=== PATIENT | male | born 1950 | race Caucasian/White ===

== ENCOUNTER 2017-03-28 06:35 | Inpatient (IN) | payer MEDICARE, BC ==
[2017-03-28] MEDS ORDERED: ceFAZolin 2 GM in Sodium Chloride 0.9% 50 ML IV ONE (07:00)
[2017-03-28] MEDS ORDERED: Scopolamine 1.5 MG Transdermal Patch TOP SCH (07:00)
[2017-03-28] MEDS ORDERED: Povidone-Iodine 10% Soln 118.25 ML Bottle ONE (07:00)
[2017-03-28] MEDS ORDERED: Thrombin (Bovine) 5,000 Unit Kit ONE (07:00)
[2017-03-28] MEDS ORDERED: Lactated Ringers 1,000 ML IV SCH (07:00)
[2017-03-28] MEDS ORDERED: Gabapentin 300 MG Cap PO ONE (07:00)
[2017-03-28] MEDS ORDERED: Glycopyrrolate 0.2 MG/ML 5 ML MDV ONE (07:51)
[2017-03-28] MEDS ORDERED: Midazolam 1 MG/ML 2 ML SDV ONE (07:51)
[2017-03-28] MEDS ORDERED: Ondansetron 4 MG/2 ML SDV ONE (07:51)
[2017-03-28] MEDS ORDERED: Succinylcholine 200 MG/10 ML MDV ONE (07:51)
[2017-03-28] MEDS ORDERED: Dexamethasone 4 MG/ML SDV ONE (07:51)
[2017-03-28] MEDS ORDERED: Propofol 200 MG/20 ML SDV ONE ×2 (07:51→10:10)
[2017-03-28] MEDS ORDERED: Neostigmine Methylsulfate 1 MG/ML 5 ML Syringe ONE (07:51)
[2017-03-28] MEDS ORDERED: Rocuronium 50 MG/5 ML Vial ONE (07:51)
[2017-03-28] MEDS ORDERED: Ketamine 500 MG/5 ML MDV IV ONE (08:00)
[2017-03-28] MEDS ORDERED: Ropivacaine 49.25 ML, Ketorolac 30 MG, EPINEPHrine 0.5 MG, cloNIDine 80 MCG, Sodium Chl... INJECT ONE ×5 (08:00)
[2017-03-28] MEDS: Tranexamic Acid 770 MG in Sodium Chloride 0.9% 50 ML IV SCH ×2 (08:06→11:35)
[2017-03-28] MEDS ORDERED: Atropine 0.4 MG/ML SDV ONE (09:40)
[2017-03-28] MEDS ORDERED: Lactated Ringers 1,000 ML ONE ×2 (09:59→10:22)
[2017-03-28] MEDS ORDERED: ePHEDrine 50 MG/ML SDV ONE (10:26)
[2017-03-28] MEDS ORDERED: fentaNYL 100 MCG/2 ML SDV ONE (10:51)
[2017-03-28] MEDS ORDERED: Magnesium Hydroxide 400 MG/5 ML Susp 30 ML Cup PO PRN (11:12)
[2017-03-28] MEDS ORDERED: Naloxone 0.4 MG/ML SDV IVPUSH PRN (11:12)
[2017-03-28] MEDS ORDERED: Aluminum Hydroxide/Magnesium Hydroxide/Simethicone Susp 30 ML Cup PO PRN (11:12)
[2017-03-28] MEDS ORDERED: Zolpidem 5 MG Tab PO PRN (11:12)
[2017-03-28] MEDS ORDERED: Sennosides 8.6 MG Tab PO PRN (11:12)
[2017-03-28] MEDS ORDERED: Sodium Chloride 0.9% 10 ML Syringe FLUSH PRN (11:12)
[2017-03-28] MEDS ORDERED: Ondansetron 4 MG/2 ML SDV IVPUSH PRN (11:12)
[2017-03-28] MEDS ORDERED: HYDROmorphone 1 MG/ML Syringe IVPUSH PRN (11:12)
[2017-03-28] MEDS: VERIFY SCOPOLAMINE PATCH TOP SCH (12:16)
[2017-03-28] MEDS: Acetaminophen/oxyCODONE 325-5 MG Tab PO PRN ×3 (13:27→23:04)
[2017-03-28] MEDS ORDERED: ceFAZolin 1 GM in Premix Bag 1 BAG IV SCH (16:00)
[2017-03-28] MEDS: ceFAZolin 1 GM in Premix Bag 1 BAG IV SCH ×2 (16:14→23:04)
[2017-03-28] MEDS: Diazepam 5 MG Tab PO PRN (19:29)
[2017-03-28] MEDS: Amitriptyline 10 MG Tab PO SCH (20:50)
[2017-03-28] MEDS ORDERED: Amitriptyline 10 MG Tab PO SCH (21:00)
[2017-03-29] MEDS: Acetaminophen/oxyCODONE 325-5 MG Tab PO PRN ×4 (06:03→20:18)
--- NOTE | 2017-03-29 08:25 | OR ---
DATE OF PROCEDURE: 03/28/2017 PREOPERATIVE DIAGNOSES: 1. Lumbar stenosis; L3-4, L4-5, L5-S1. 2. Right footdrop. 3. Right lower extremity radiculopathy. 4. Foraminal stenosis, right L3-4 and right L5-S1. POSTOPERATIVE DIAGNOSES: 1. Lumbar stenosis; L3-4, L4-5, L5-S1. 2. Right footdrop. 3. Right lower extremity radiculopathy. 4. Foraminal stenosis, right L3-4 and right L5-S1. PROCEDURE: 1. Transforaminal lumbar interbody fusion with posterior lateral fusion, L5-S1. 2. Insertion of interbody device at L5-S1. 3. Segmental instrumentation, L5-S1. 4. Laminectomy done, which was required, in addition to decompression for fusion at L5-S1. 5. Use of intraoperative fluoroscopy. 6. Laminectomy at L3-L4 and L4-L5. 7. Use of autograft from laminectomy and posterolateral gutter interspace as well as use of allograft. SHORTS SIFTER: ALANA Salas. ANESTHESIA: General endotracheal intubation. FLUID: Lactated Ringer solution. ESTIMATED BLOOD LOSS: 100 mL. COMPLICATIONS: None. SPECIMEN: None. DISCHARGE DISPOSITION: Stable to PACU. INSTRUMENTATION: Globus CREO AMP 6.5 x 50 mm screws x2 at L5 and 6.5 x 40 mm cryo screws x2 at S1 with a Rise 10 x 26, 10 degree, 8-15 mm implant at L5-S1. INDICATIONS: The patient was seen preoperatively in the clinic. He recently had a new onset intermittent footdrop with back pain and lower extremity weakness, right lower extremity radiculopathy. Preoperative imaging confirmed the above-mentioned diagnosis. Risks and benefits of the procedure were explained to the patient. Informed consent was obtained. DETAILS OF PROCEDURE: The patient was seen preoperatively by myself and the anesthesia staff in the preoperative holding area where the operative site was marked. He was brought to the operative suite by the anesthesia staff where general anesthesia was administered. Neuromonitoring leads were placed and normal at baseline. He also had a sterile Enamorado catheter placed. The fluoroscopy unit was draped in a sterile manner, and the patient was then flipped into a prone position on the Kurtis table. All extremities found to be well padded. The bed was flexed. The low back was clipped, prepped and draped in sterile manner. Time-out was called identifying the correct patient, correct procedure, the correct site, and antibiotics had been given within appropriate period of time. Lateral fluoroscopy was then used to identify the pedicles of S1 up to L3. A midline incision was made from L3 to S1 and carried down to the deep fascia. Bleeding during the case was controlled with Bovie electrocautery, a bipolar electrocautery unit, as well as Aquamantys 5.0 unit. Initial retraction was accomplished with cerebellars. The deep fascia was then incised over the L3 to S1 spinous processes over their respective lamina, transverse processes at L5-S1, and the sacral ala at S1. This was done using a Pedersen and Bovie electrocautery. I then inserted the Versa-Trac at L5-S1 with 75 mm blades and then cleaned up the soft tissue over L5 and S1, as well as the respective facets of the transverse processes on the left at L5 and S1. Screw insertion was done by the following technique: The lateral facet was decorticated. The entry point was then made in the midpoint of the transverse process. A PediGuard unit was then inserted, followed by confirmed placement with the pedicle probe, followed by under tapping by 1 mm, followed by screw placement. This was done on both sides. Screws were then tested and all found to be above 17. I did replace the S1 on the right because it tested at 6. I did not feel any abnormality but then decided to place this a little bit more laterally. This, then placed above 17. This being accomplished, I did a laminectomy at L5 and then a total facetectomy at L5-S1 on the right. I then carefully identified the disk space just cranial to the S1 pedicle. We unroofed the L5 root on the right, but did not take soft tissue off to visualize it. We then incised the disk space with a 15 blade and then sequentially used ekta from 7 to 11. I then did disk space preparation using straight curettes, upgoing and downgoing curettes, as well as downgoing straight and upgoing pituitaries. I then used a bone funnel and tamped in bone graft anteriorly with a bone funnel and tamp. I then inserted our implant and then, under direct visualization, expanded this till it locked out and then took final films. I then took a film of the interbody anteriorly. We then cleaned off our screws. I then proceeded with our laminectomies at L3-L4 and L4-L5. I did a wide laminectomy at L4-L5 and more of a moderate laminectomy at L3-4. I removed extensive ligamentum flavum at both levels. No durotomy was encountered during the procedure. I then placed Floseal in the epidural space and then tamped this with Ray-Tecs while we concentrated on finishing our fusion. We then cleaned our screws. We placed the tulips 40 mm rods, locking caps and then torqued into specification. I then took final films, which showed everything to be in good position. We then irrigated with 3 L of Betadine infused irrigation, and then, I decorticated the transverse processes, ala, and lateral facet and pars at L5-S1 and then placed a mixture of Signify and our graft from our laminectomies in the posterior lateral gutter on the left. After this had been accomplished, we then applied some Floseal, then tamped that dry with a Ray-Saúl, followed by Gel-Foam powder, followed by closure with 2-0 Vicryl in an interlocking manner, 2-0 Vicryl in a running manner, followed by a liter of Betadine-infused irrigation, followed by subcutaneous closure with two STRATAFIX, then 3-0 STRATAFIX, and then Steri- Strips. The neuromonitoring leads were normal at the end of the case. There were some minor fluctuations in SSEPs on the right while we were working there, but they did not drop out at all. The patient was then flipped back into the hospital bed. Neuromonitoring leads were removed, and he was taken to the PACU in stable condition. Glen Salgado DO /[id number]
[2017-03-29] MEDS ORDERED: Non-Formulary Medication 1 Each (Citalopram Hydrobromide [Celexa] 20 MG) PO SCH (09:00)
[2017-03-29] MEDS ORDERED: Simvastatin 20 MG Tab PO SCH ×2 (09:00)
[2017-03-29] MEDS ORDERED: ASCORBIC ACID PO SCH (09:00)
[2017-03-29] MEDS ORDERED: Ascorbic Acid 500 MG Tab PO SCH ×2 (09:00)
[2017-03-29] MEDS ORDERED: COD LIVER OIL PO SCH (09:00)
[2017-03-29] MEDS ORDERED: ASCORBIC ACID 100 MG PO SCH (09:00)
[2017-03-29] MEDS: ceFAZolin 1 GM in Premix Bag 1 BAG IV SCH (09:42)
[2017-03-29] MEDS: Dexamethasone 4 MG/ML 5 ML MDV IVPUSH SCH ×3 (09:45→20:11)
[2017-03-29] MEDS: Ascorbic Acid 500 MG Tab PO SCH (09:48)
[2017-03-29] MEDS: Gabapentin 300 MG Cap PO SCH ×3 (09:49→20:14)
[2017-03-29] MEDS: Citalopram 20 MG Tab PO SCH (09:49)
[2017-03-29] MEDS: VERIFY SCOPOLAMINE PATCH TOP SCH (09:50)
[2017-03-29] MEDS: COD LIVER OIL PO SCH (09:51)
[2017-03-29] MEDS: ASCORBIC ACID PO SCH (09:51)
[2017-03-29] MEDS: Simvastatin 20 MG Tab PO SCH (09:55)
[2017-03-29] MEDS: Diazepam 5 MG Tab PO PRN ×2 (10:45→17:49)
[2017-03-29] MEDS: Amitriptyline 10 MG Tab PO SCH (20:14)
[2017-03-29] MEDS: Tamsulosin 0.4 MG Cap.ER PO SCH (21:44)
[2017-03-30] MEDS: Diazepam 5 MG Tab PO PRN (02:23)
[2017-03-30] MEDS: Dexamethasone 4 MG/ML 5 ML MDV IVPUSH SCH ×4 (02:24→21:47)
[2017-03-30] MEDS ORDERED: ceFAZolin 2 GM in Premix Bag 1 BAG IV SCH (08:00)
[2017-03-30] MEDS: Citalopram 20 MG Tab PO SCH (08:07)
[2017-03-30] MEDS: Ascorbic Acid 500 MG Tab PO SCH (08:07)
[2017-03-30] MEDS: COD LIVER OIL PO SCH (08:07)
[2017-03-30] MEDS: ASCORBIC ACID PO SCH (08:07)
[2017-03-30] MEDS: Gabapentin 300 MG Cap PO SCH ×3 (08:07→21:47)
[2017-03-30] MEDS: VERIFY SCOPOLAMINE PATCH TOP SCH (08:08)
[2017-03-30] MEDS: Simvastatin 20 MG Tab PO SCH (08:09)
--- NOTE | 2017-03-30 08:48 | US ---
VL Duplex Lwr Ext Veins Comp HISTORY: Pain FINDINGS: The deep veins of the lower extremities bilaterally demonstrate normal augmentation and com pressibility. No evidence for deep venous thrombosis. IMPRESSION: Normal bilateral lower extremity venous Doppler ultrasound.
[2017-03-30] MEDS: ceFAZolin 2 GM in Sodium Chloride 0.9% 50 ML IV SCH ×2 (09:21→16:51)
[2017-03-30] MEDS: Tamsulosin 0.4 MG Cap.ER PO SCH ×2 (09:22→16:58)
[2017-03-30] MEDS: Acetaminophen/oxyCODONE 325-5 MG Tab PO PRN ×3 (10:01→21:46)
--- NOTE | 2017-03-30 18:12 | PCM.PN ---
- General Info Date of Service: 03/30/17 Functional Status: Reports: Pain Controlled, Tolerating Diet, Ambulating, Urinating - Review of Systems General: Reports: No Symptoms - Patient Data Vitals - Most Recent: Last Vital Signs Temp 36.1 C 03/30/17 15:28 Pulse 64 03/30/17 15:28 Resp 16 03/30/17 15:28 BP 126/61 03/30/17 15:28 Pulse Ox 96 03/30/17 15:28 Weight - Most Recent: 163 lb 15.995 oz I&O - Last 24 Hours: Intake & Output 03/30/17 03/30/17 03/30/17 06:59 14:59 22:59 Intake Total 800 360 320 Output Total 1200 360 375 Balance -400 0 -55 Lab Results Last 24 Hours: Laboratory Results - last 24 hr 03/30/17 03/30/17 03/30/17 Range/Units 04:30 04:30 09:37 WBC 18.2 H (4.5-11.0) K/uL RBC 4.23 L (4.30-5.90) M/uL Hgb 12.5 (12.0-15.0) g/dL Hct 37.7 L (40.0-54.0) % MCV 89 (80-98) fL MCH 30 (27-31) pg MCHC 33 (32-36) % Plt Count 173 (150-400) K/uL Neut % (Auto) 91 H (36-66) % Lymph % (Auto) 4 L (24-44) % [place] % (Auto) 6 (2-6) % Eos % (Auto) 0 L (2-4) % Baso % (Auto) 0 (0-1) % Sodium 137 L (140-148) mmol/L Potassium 4.4 (3.6-5.2) mmol/L Chloride 102 (100-108) mmol/L Carbon Dioxide 29 (21-32) mmol/L Anion Gap 10.4 (5.0-14.0) mmol/L BUN 18 (7-18) mg/dL Creatinine 1.1 (0.8-1.3) mg/dL Est Cr Clr Drug Dosing 63.28 mL/min Estimated GFR (MDRD) > 60 (>60) Glucose 178 H (74-106) mg/dL Calcium 8.8 (8.5-10.1) mg/dL Urine Color Yellow Urine Appearance Turbid Urine pH 6.5 (4.5-8.0) Ur Specific [place] 1.015 (1.008-1.030) Urine Protein Negative (NEGATIVE) mg/dL Urine Glucose (UA) Normal (NEGATIVE) mg/dL Urine Ketones Negative (NEGATIVE) mg/dL Urine Occult Blood Large (NEGATIVE) Urine Nitrite Negative (NEGAITVE) Urine Bilirubin Negative (NEGATIVE) Urine Urobilinogen Normal (NORMAL) mg/dL Ur Leukocyte Esterase Large (NEGATIVE) Urine RBC Packed H (0-5) Urine WBC Packed H (0-5) Ur Epithelial Cells Few Amorphous Sediment Not seen Urine Bacteria Few Urine Mucus Rare Med Orders - Current: Current Medications Al Hydroxide/Mg Hydroxide (Mag-Al Plus) 30 ml PO Q4H PRN PRN Reason: Indigestion Amitriptyline HCl (Elavil) 10 mg PO BEDTIME [facility] Last Admin: 03/29/17 20:14 Dose: 10 mg Ascorbic Acid (Vitamin C) 500 mg PO DAILY [facility] Last Admin: 03/30/17 08:07 Dose: 500 mg Citalopram Hydrobromide (Celexa) 20 mg PO DAILY [facility] Last Admin: 03/30/17 08:07 Dose: 20 mg Dexamethasone (Dexamethasone) 10 mg IVPUSH Q6H [facility] Last Admin: 03/30/17 15:39 Dose: 10 mg Diazepam (Valium.) 5 mg PO Q6H PRN PRN Reason: Spasms Last Admin: 03/30/17 02:23 Dose: 5 mg Gabapentin (Neurontin) 300 mg PO TID [facility] Last Admin: 03/30/17 14:28 Dose: 300 mg Hydromorphone HCl (Dilaudid) 1 mg IVPUSH Q2H PRN PRN Reason: Pain Last Admin: 03/28/17 12:42 Dose: 1 mg Cefazolin Sodium 2 gm/ Sodium (Chloride) 50 mls @ 100 mls/hr IV Q8H [facility] Stop: 03/31/17 01:29 Last Admin: 03/30/17 16:51 Dose: 100 mls/hr Magnesium Hydroxide (Milk Of Magnesia) 30 ml PO BID PRN PRN Reason: Constipation Naloxone HCl (Narcan) 0.2 mg IVPUSH ONETIME PRN PRN Reason: Oversedation Verify Scopolamine (Patch) 0 each TOP DAILY [facility] Last Admin: 03/30/17 08:08 Dose: Not Given (Ascorbic Acid/Cod Liver Oil [Cod Liver Oil] 1 Tab)Pom 1 tab PO DAILY [facility] Last Admin: 03/30/17 08:07 Dose: Not Given Ondansetron HCl (Zofran) 8 mg IVPUSH Q4H PRN PRN Reason: Nausea/Vomiting Oxycodone/Acetaminophen (Percocet 325-5 Mg) 2 tab PO Q4H PRN PRN Reason: Pain Last Admin: 03/30/17 15:46 Dose: 2 tab Scopolamine (Transderm-Scop) 1.5 mg TOP Q72H [facility] Stop: 03/31/17 05:00 Last Admin: 03/28/17 06:56 Dose: 1.5 mg Senna (Senna) 8.6 mg PO BID PRN PRN Reason: Constipation Last Admin: 03/29/17 20:18 Dose: 8.6 mg Simvastatin (Zocor) 20 mg PO DAILY [facility] Last Admin: 03/30/17 08:09 Dose: 20 mg Tamsulosin HCl (Flomax) 0.4 mg PO BIDPC [facility] Last Admin: 03/30/17 16:58 Dose: 0.4 mg Zolpidem Tartrate (Ambien) 5 mg PO BEDTIME PRN PRN Reason: Sleep Discontinued Medications Amitriptyline HCl (Elavil) 10 mg PO BEDTIME [facility] Ascorbic Acid (Vitamin C) 250 mg PO DAILY [facility] Ascorbic Acid (Vitamin C) 250 mg PO DAILY [facility] Atropine Sulfate (Atropine) Confirm Administered Dose 0.4 mg .ROUTE .STK-MED ONE Stop: 03/28/17 09:41 Ropivacaine 49.25 ml/Ketorolac Tromethamine 30 mg/Epinephrine HCl 0.5 mg/ Clonidine HCl 80 mcg/ Sodium Chloride 48.45 ml 0 ml INJECT ONETIME ONE Stop: 03/28/17 08:01 Last Admin: 03/28/17 09:07 Dose: 100 ml Dexamethasone (Dexamethasone) Confirm Administered Dose 4 mg .ROUTE .STK-MED ONE Stop: 03/28/17 07:52 Ephedrine Sulfate (Ephedrine Sulfate) Confirm Administered Dose 50 mg .ROUTE .STK-MED ONE Stop: 03/28/17 10:27 Fentanyl (Sublimaze) Confirm Administered Dose 100 mcg .ROUTE .STK-MED ONE Stop: 03/28/17 10:52 Fentanyl Citrate (Fentanyl) Confirm Administered Dose 500 mcg .ROUTE .STK-MED ONE Stop: 03/28/17 07:52 Gabapentin (Neurontin) 300 mg PO ONETIME ONE Stop: 03/28/17 07:01 Last Admin: 03/28/17 06:56 Dose: 300 mg Glycopyrrolate (Robinul) Confirm Administered Dose 1 mg .ROUTE .STK-MED ONE Stop: 03/28/17 07:52 Cefazolin Sodium 2 gm/ Sodium (Chloride) 50 mls @ 100 mls/hr IV ONETIME ONE Stop: 03/28/17 07:29 Last Admin: 03/28/17 08:06 Dose: 100 mls/hr Lactated Ringer's (Ringers, Lactated) 1,000 mls @ 0 mls/hr IV ASDIRECTED [facility] PRN Reason: KVO Last Admin: 03/28/17 07:46 Dose: 100 mls/hr Tranexamic Acid 770 mg/ Sodium (Chloride) 57.7 mls @ 230.8 mls/hr IV Q3H [facility] Stop: 03/28/17 11:14 Last Admin: 03/28/17 11:35 Dose: 230.8 mls/hr Ketamine HCl 100 mg/ Sodium (Chloride) 100 mls @ 20.5 mls/hr IV ASDIRECTED [facility] Stop: 03/28/17 10:00 Lactated Ringer's (Ringers, Lactated) Confirm Administered Dose 1,000 mls @ as directed .ROUTE .STK-MED ONE Stop: 03/28/17 10:00 Lactated Ringer's (Ringers, Lactated) Confirm Administered Dose 1,000 mls @ as directed .ROUTE .STK-MED ONE Stop: 03/28/17 10:23 Cefazolin Sodium/Dextrose 1 gm (/ Premix) 50 mls @ 100 mls/hr IV Q8H [facility] Last Admin: 03/29/17 09:42 Dose: 100 mls/hr Ketamine HCl (Ketalar) 34 mg IV ONETIME ONE Stop: 03/28/17 08:01 Last Admin: 03/28/17 12:15 Dose: Not Given Midazolam HCl (Versed 1 Mg/Ml) Confirm Administered Dose 2 mg .ROUTE .STK-MED ONE Stop: 03/28/17 07:52 Neostigmine Methylsulfate (Neostigmine) Confirm Administered Dose 5 mg .ROUTE .STK-MED ONE Stop: 03/28/17 07:52 Non-Formulary Medication (Ascorbic Acid [Vitamin C]) 100 mg PO DAILY [facility] Non-Formulary Medication (Ascorbic Acid/Cod Liver Oil [Cod Liver Oil]) 1 tab PO DAILY [facility] Non-Formulary Medication (Citalopram Hydrobromide [Celexa]) 20 mg PO DAILY [facility] Ondansetron HCl (Zofran) Confirm Administered Dose 4 mg .ROUTE .STK-MED ONE Stop: 03/28/17 07:52 Povidone Iodine (Betadine 10% Soln) Confirm Administered Dose 1 ml .ROUTE .STK- MED ONE Stop: 03/28/17 07:01 Last Admin: 03/28/17 09:21 Dose: 40 ml Propofol (Diprivan 20 Ml) Confirm Administered Dose 200 mg .ROUTE .STK-MED ONE Stop: 03/28/17 07:52 Propofol (Diprivan 20 Ml) Confirm Administered Dose 200 mg .ROUTE .STK-MED ONE Stop: 03/28/17 10:11 Rocuronium [place] (Zemuron) Confirm Administered Dose 50 mg .ROUTE .STK-MED ONE Stop: 03/28/17 07:52 Simvastatin (Zocor) 20 mg PO DAILY [facility] Simvastatin (Zocor) 20 mg PO DAILY [facility] Sodium Chloride (Saline Flush) 10 ml FLUSH ASDIRECTED PRN PRN Reason: Keep Vein Open Succinylcholine Chloride (Quelicin) Confirm Administered Dose 200 mg .ROUTE .STK -MED ONE Stop: 03/28/17 07:52 Thrombin (Thrombin-Jmi) Confirm Administered Dose 15,000 unit .ROUTE .STK-MED ONE Stop: 03/28/17 07:01 Last Admin: 03/28/17 09:21 Dose: 10,000 unit - Exam General: Alert, Oriented Extremities: Normal Inspection, Normal Range of Motion, Non-Tender, No Pedal Edema, Normal Capillary Refill Peripheral Pulses: 2+: Dorsalis Pedis (L), Dorsalis Pedis (R) Skin: Warm, Intact Wound/Incisions: Healing Well, Dressing Dry and Intact Neurological: No New Focal Deficit, Normal Gait, Strength Equal Bilateral, Reflexes Equal Bilateral Psy/Mental Status: Alert, Normal Affect - Problem List Review Problem List Initiated/Reviewed/Updated: Yes - My Orders Last 24 Hours: My Active Orders 03/30/17 09:00 ceFAZolin [Ancef] 2 gm Sodium Chloride 0.9% [Normal Saline] 50 ml IV Q8H 03/31/17 05:15 BASIC METABOLIC PANEL,BMP [CHEM] DAILY CBC WITH AUTO DIFF [HEME] DAILY 04/01/17 05:15 BASIC METABOLIC PANEL,BMP [CHEM] DAILY CBC WITH AUTO DIFF [HEME] DAILY - Plan Plan:: Jani is pod 3 of a lumbar fusion. He is doing well. He continues to have some difficulties and pain in his right leg. He notes much improvement. He has some urinary hesitancy throughout the day that we have been monitoring. I did start him on flomax. I also ordered for him to have some extra ancef due to his wbc going to 18. We will continue to monitoring him till am. I want to watch his urine output closely.
[2017-03-30] MEDS: Amitriptyline 10 MG Tab PO SCH (21:47)
[2017-03-31] MEDS: ceFAZolin 2 GM in Sodium Chloride 0.9% 50 ML IV SCH (02:08)
[2017-03-31] MEDS: Dexamethasone 4 MG/ML 5 ML MDV IVPUSH SCH ×2 (02:08→08:54)
[2017-03-31] MEDS: Tamsulosin 0.4 MG Cap.ER PO SCH (07:49)
[2017-03-31] MEDS: Citalopram 20 MG Tab PO SCH (08:52)
[2017-03-31] MEDS: Simvastatin 20 MG Tab PO SCH (08:53)
[2017-03-31] MEDS: Ascorbic Acid 500 MG Tab PO SCH (08:53)
[2017-03-31] MEDS: Gabapentin 300 MG Cap PO SCH (08:53)
[2017-03-31] MEDS: Acetaminophen/oxyCODONE 325-5 MG Tab PO PRN (08:55)
[2017-03-31] MEDS: COD LIVER OIL PO SCH (08:58)
[2017-03-31] MEDS: VERIFY SCOPOLAMINE PATCH TOP SCH (08:58)
[2017-03-31] MEDS: ASCORBIC ACID PO SCH (08:58)
--- NOTE | 2017-03-31 09:34 | PCM.DCSUM1 ---
Discharge Summary - Hospital Course Free Text/Narrative:: Patient is status pod 3 of a lumbar fusion. He is doing well. His urine output has improved. He is ambulating without difficulties. His pain is controlled with oral pain medication. - Discharge Data Discharge Date: 03/31/17 Discharge Disposition: Home, Self-Care 01 Condition: Good - Patient Summary/Data Consults: Consultations 03/28/17 11:12 OT Evaluation and Treatment [CONS] Routine Please Evaluate and Treat. OT Reason for Consult: Strengthening This query below is only for informational purposes and is not editable. PT Evaluation and Treatment [CONS] Routine Please Evaluate and Treat. PT Reason for Consult: Strengthening This query below is only for informational purposes and is not editable. - Patient Instructions Diet: Usual Diet as Tolerated Activity: Apply Ice, As Tolerated Driving: Do Not Drive Showering/Bathing: May Shower Wound/Incision Care: Keep Operative Site/Wound Site Clean and Dry, Change Dressing Daily Notify Provider of: Fever, Increased Pain, Swelling and Redness, Drainage, Nausea and/or Vomiting - Discharge Plan Prescriptions/Med Rec: Acetaminophen/oxyCODONE [Percocet 325-5 MG] 1 tab PO Q6HR #90 tablet Diazepam [Valium] 5 mg PO Q6H PRN #20 tablet PRN Reason: Spasms Sennosides [Senna] 8.6 mg PO DAILY #60 tablet Tamsulosin [Flomax] 0.4 mg PO DAILY #60 cap.er Home Medications: Home Meds Amitriptyline [Elavil] 10 mg PO BEDTIME 03/20/17 [History] Ascorbic Acid [Vitamin C] 100 mg PO DAILY 03/20/17 [History] Ascorbic Acid/Cod Liver Oil [Cod Liver Oil] 1 tab PO DAILY 03/20/17 [History] Citalopram Hydrobromide [Celexa] 20 mg PO DAILY 03/20/17 [History] EPINEPHrine [Auvi-Q] 1 pen SQ ASDIRECTED 03/20/17 [History] Gabapentin [Neurontin] 300 mg PO TID 03/20/17 [History] Simvastatin [Zocor] 20 mg PO DAILY 03/20/17 [History] traMADol HCl [Tramadol HCl] 50 mg PO ASDIRECTED PRN 03/28/17 [History] Acetaminophen/oxyCODONE [Percocet 325-5 MG] 1 tab PO Q6HR #90 tablet 03/31/17 [ Rx] Diazepam [Valium] 5 mg PO Q6H PRN #20 tablet 03/31/17 [Rx] Sennosides [Senna] 8.6 mg PO DAILY #60 tablet 03/31/17 [Rx] Tamsulosin [Flomax] 0.4 mg PO DAILY #60 cap.er 03/31/17 [Rx] Patient Handouts: Tamsulosin capsules - Discharge Summary/Plan Comment DC Time >30 min.: Yes Discharge Summary/Plan Comment: At this time patient is doing well. He will be dc'd today to home. He is to follow up with ortho in 1 month. I will send him home with flomax, senna, percocet, and valium. He is to call sooner if any questions. - Patient Data Vitals - Most Recent: Last Vital Signs Temp 35.7 C 03/31/17 07:44 Pulse 58 L 03/31/17 07:44 Resp 16 03/31/17 07:44 BP 129/59 L 03/31/17 07:44 Pulse Ox 97 03/31/17 07:44 Weight - Most Recent: 163 lb 15.995 oz I&O - Last 24 hours: Intake & Output 03/30/17 03/31/17 03/31/17 22:59 06:59 14:59 Intake Total 320 50 Output Total 375 525 150 Balance -23 -660 -150 Lab Results - Last 24 hrs: Laboratory Results - last 24 hr 03/30/17 03/31/17 03/31/17 Range/Units 09:37 04:55 04:55 WBC 18.2 H (4.5-11.0) K/uL RBC 3.88 L (4.30-5.90) M/uL Hgb 11.7 L (12.0-15.0) g/dL Hct 35.0 L (40.0-54.0) % MCV 90 (80-98) fL MCH 30 (27-31) pg MCHC 33 (32-36) % Plt Count 173 (150-400) K/uL Neut % (Auto) 90 H (36-66) % Lymph % (Auto) 4 L (24-44) % [place] % (Auto) 5 (2-6) % Eos % (Auto) 0 L (2-4) % Baso % (Auto) 0 (0-1) % Sodium 137 L (140-148) mmol/L Potassium 4.4 (3.6-5.2) mmol/L Chloride 102 (100-108) mmol/L Carbon Dioxide 30 (21-32) mmol/L Anion Gap 9.4 (5.0-14.0) mmol/L BUN 20 H (7-18) mg/dL Creatinine 1.1 (0.8-1.3) mg/dL Est Cr Clr Drug Dosing 63.28 mL/min Estimated GFR (MDRD) > 60 (>60) Glucose 186 H (74-106) mg/dL Calcium 8.5 (8.5-10.1) mg/dL Urine Color Yellow Urine Appearance Turbid Urine pH 6.5 (4.5-8.0) Ur Specific [place] 1.015 (1.008-1.030) Urine Protein Negative (NEGATIVE) mg/dL Urine Glucose (UA) Normal (NEGATIVE) mg/dL Urine Ketones Negative (NEGATIVE) mg/dL Urine Occult Blood Large (NEGATIVE) Urine Nitrite Negative (NEGAITVE) Urine Bilirubin Negative (NEGATIVE) Urine Urobilinogen Normal (NORMAL) mg/dL Ur Leukocyte Esterase Large (NEGATIVE) Urine RBC Packed H (0-5) Urine WBC Packed H (0-5) Ur Epithelial Cells Few Amorphous Sediment Not seen Urine Bacteria Few Urine Mucus Rare Med Orders - Current: Current Medications Al Hydroxide/Mg Hydroxide (Mag-Al Plus) 30 ml PO Q4H PRN PRN Reason: Indigestion Amitriptyline HCl (Elavil) 10 mg PO BEDTIME [facility] Last Admin: 03/30/17 21:47 Dose: 10 mg Ascorbic Acid (Vitamin C) 500 mg PO DAILY [facility] Last Admin: 03/31/17 08:53 Dose: 500 mg Citalopram Hydrobromide (Celexa) 20 mg PO DAILY [facility] Last Admin: 03/31/17 08:52 Dose: 20 mg Dexamethasone (Dexamethasone) 10 mg IVPUSH Q6H [facility] Last Admin: 03/31/17 08:54 Dose: 10 mg Diazepam (Valium.) 5 mg PO Q6H PRN PRN Reason: Spasms Last Admin: 03/30/17 02:23 Dose: 5 mg Gabapentin (Neurontin) 300 mg PO TID [facility] Last Admin: 03/31/17 08:53 Dose: 300 mg Hydromorphone HCl (Dilaudid) 1 mg IVPUSH Q2H PRN PRN Reason: Pain Last Admin: 03/28/17 12:42 Dose: 1 mg Magnesium Hydroxide (Milk Of Magnesia) 30 ml PO BID PRN PRN Reason: Constipation Last Admin: 03/31/17 08:55 Dose: 30 ml Naloxone HCl (Narcan) 0.2 mg IVPUSH ONETIME PRN PRN Reason: Oversedation Verify Scopolamine (Patch) 0 each TOP DAILY [facility] Last Admin: 03/31/17 08:58 Dose: Not Given (Ascorbic Acid/Cod Liver Oil [Cod Liver Oil] 1 Tab)Pom 1 tab PO DAILY [facility] Last Admin: 03/31/17 08:58 Dose: Not Given Ondansetron HCl (Zofran) 8 mg IVPUSH Q4H PRN PRN Reason: Nausea/Vomiting Oxycodone/Acetaminophen (Percocet 325-5 Mg) 2 tab PO Q4H PRN PRN Reason: Pain Last Admin: 03/31/17 08:55 Dose: 2 tab Senna (Senna) 8.6 mg PO BID PRN PRN Reason: Constipation Last Admin: 03/29/17 20:18 Dose: 8.6 mg Simvastatin (Zocor) 20 mg PO DAILY [facility] Last Admin: 03/31/17 08:53 Dose: 20 mg [facility]osin [facility]) [facility] Last Admin: 03/31/17 07:49 Dose: 0.4 mg Zolpidem Tartrate (Ambien) 5 mg PO BEDTIME PRN PRN Reason: Sleep Discontinued Medications Amitriptyline HCl (Elavil) 10 mg PO BEDTIME [facility] Ascorbic Acid (Vitamin C) 250 mg PO DAILY [facility] Ascorbic Acid (Vitamin C) 250 mg PO DAILY [facility] Atropine Sulfate (Atropine) Confirm Administered Dose 0.4 mg .ROUTE .STK-MED ONE Stop: 03/28/17 09:41 Ropivacaine 49.25 ml/Ketorolac Tromethamine 30 mg/Epinephrine HCl 0.5 mg/ Clonidine HCl 80 mcg/ Sodium Chloride 48.45 ml 0 ml INJECT ONETIME ONE Stop: 03/28/17 08:01 Last Admin: 03/28/17 09:07 Dose: 100 ml Dexamethasone (Dexamethasone) Confirm Administered Dose 4 mg .ROUTE .STK-MED ONE Stop: 03/28/17 07:52 Ephedrine Sulfate (Ephedrine Sulfate) Confirm Administered Dose 50 mg .ROUTE .[facility] ONE Stop: 03/28/17 10:27 Fentanyl (Sublimaze) Confirm Administered Dose 100 mcg .ROUTE .[facility] ONE Stop: 03/28/17 10:52 Fentanyl Citrate (Fentanyl) Confirm Administered Dose 500 mcg .ROUTE .ST-MED ONE Stop: 03/28/17 07:52 Gabapentin (Neurontin) 300 mg PO ONETIME ONE Stop: 03/28/17 07:01 Last Admin: 03/28/17 06:56 Dose: 300 mg Glycopyrrolate (Robinul) Confirm Administered Dose 1 mg .ROUTE .[facility] ONE Stop: 03/28/17 07:52 Cefazolin Sodium 2 gm/ Sodium (Chloride) 50 mls @ 100 mls/hr IV ONETIME ONE Stop: 03/28/17 07:29 Last Admin: 03/28/17 08:06 Dose: 100 mls/hr Lactated Ringer's (Ringers, Lactated) 1,000 mls @ 0 mls/hr IV ASDIRECTED [facility] PRN Reason: KVO Last Admin: 03/28/17 07:46 Dose: 100 mls/hr Tranexamic Acid 770 mg/ Sodium (Chloride) 57.7 mls @ 230.8 mls/hr IV Q3H [facility] Stop: 03/28/17 11:14 Last Admin: 03/28/17 11:35 Dose: 230.8 mls/hr Ketamine HCl 100 mg/ Sodium (Chloride) 100 mls @ 20.5 mls/hr IV ASDIRECTED [facility] Stop: 03/28/17 10:00 Lactated Ringer's (Ringers, Lactated) Confirm Administered Dose 1,000 mls @ as directed .ROUTE .[facility] ONE Stop: 03/28/17 10:00 Lactated Ringer's (Ringers, Lactated) Confirm Administered Dose 1,000 mls @ as directed .ROUTE .[facility] ONE Stop: 03/28/17 10:23 Cefazolin Sodium/Dextrose 1 gm (/ Premix) 50 mls @ 100 mls/hr IV Q8H [facility] Last Admin: 03/29/17 09:42 Dose: 100 mls/hr Cefazolin Sodium 2 gm/ Sodium (Chloride) 50 mls @ 100 mls/hr IV Q8H [facility] Stop: 03/31/17 01:29 Last Admin: 03/31/17 02:08 Dose: 100 mls/hr Ketamine HCl (Ketalar) 34 mg IV ONETIME ONE Stop: 03/28/17 08:01 Last Admin: 03/28/17 12:15 Dose: Not Given Midazolam HCl (Versed 1 Mg/Ml) Confirm Administered Dose 2 mg .ROUTE .STK-MED ONE Stop: 03/28/17 07:52 Neostigmine Methylsulfate (Neostigmine) Confirm Administered Dose 5 mg .ROUTE .STK-MED ONE Stop: 03/28/17 07:52 Non-Formulary Medication (Ascorbic Acid [Vitamin C]) 100 mg PO DAILY [facility] Non-Formulary Medication (Ascorbic Acid/Cod Liver Oil [Cod Liver Oil]) 1 tab PO DAILY [facility] Non-Formulary Medication (Citalopram Hydrobromide [Celexa]) 20 mg PO DAILY [facility] Ondansetron HCl (Zofran) Confirm Administered Dose 4 mg .ROUTE .STK-MED ONE Stop: 03/28/17 07:52 Povidone Iodine (Betadine 10% Soln) Confirm Administered Dose 1 ml .ROUTE .STK- MED ONE Stop: 03/28/17 07:01 Last Admin: 03/28/17 09:21 Dose: 40 ml Propofol (Diprivan 20 Ml) Confirm Administered Dose 200 mg .ROUTE .STK-MED ONE Stop: 03/28/17 07:52 Propofol (Diprivan 20 Ml) Confirm Administered Dose 200 mg .ROUTE .STK-MED ONE Stop: 03/28/17 10:11 Rocuronium [place] (Zemuron) Confirm Administered Dose 50 mg .ROUTE .STK-MED ONE Stop: 03/28/17 07:52 Scopolamine (Transderm-Scop) 1.5 mg TOP Q72H [facility] Stop: 03/31/17 05:00 Last Admin: 03/28/17 06:56 Dose: 1.5 mg Simvastatin (Zocor) 20 mg PO DAILY [facility] Simvastatin (Zocor) 20 mg PO DAILY [facility] Sodium Chloride (Saline Flush) 10 ml FLUSH ASDIRECTED PRN PRN Reason: Keep Vein Open Succinylcholine Chloride (Quelicin) Confirm Administered Dose 200 mg .ROUTE .STK -MED ONE Stop: 03/28/17 07:52 Thrombin (Thrombin-Jmi) Confirm Administered Dose 15,000 unit .ROUTE .STK-MED ONE Stop: 03/28/17 07:01 Last Admin: 03/28/17 09:21 Dose: 10,000 unit - Exam General: Reports: Alert, Oriented Back Exam: Reports: Normal Inspection, Full Range of Motion Extremities: Normal Inspection, Normal Range of Motion, Non-Tender, No Pedal Edema, Normal Capillary Refill Skin: Reports: Warm, Dry, Intact Wound/Incisions: Reports: Healing Well, Dressing Dry and Intact, No Drainage Neurological: Reports: No New Focal Deficit, Normal Gait, Strength Equal Bilateral, Reflexes Equal Bilateral Psy/Mental Status: Reports: Alert *Q Meaningful Use (DIS) - VTE *Q VTE Criteria *Q: - Stroke *Q Stroke Criteria *Q: - AMI *Q AMI Criteria *Q:
[2017-03-31 10:56] VITALS: BP 133/66
--- NOTE | 2017-04-23 10:24 | PCM.PN ---
- General Info Date of Service: 03/29/17 Admission Dx/Problem (Free Text): Jani is status postop day 1 of a lumbar fusion. He is doing very well. Patient does have some weakness noted in the right lower extremity. He is otherwise doing very well. Pain is under control at this time. Patient does have slight issues with urinary hesitancy. - Review of Systems Genitourinary: Reports: Urgency, Retention - Patient Data Vitals - Most Recent: Last Vital Signs Temp 35.6 C 03/31/17 10:54 Pulse 55 L 03/31/17 10:54 Resp 16 03/31/17 10:54 BP 133/66 03/31/17 10:54 Pulse Ox 97 03/31/17 10:54 Weight - Most Recent: 163 lb 15.995 oz Med Orders - Current: Current Medications Discontinued Medications Al Hydroxide/Mg Hydroxide (Mag-Al Plus) 30 ml PO Q4H PRN PRN Reason: Indigestion Amitriptyline HCl (Elavil) 10 mg PO BEDTIME [facility] Amitriptyline HCl (Elavil) 10 mg PO BEDTIME [facility] Last Admin: 03/30/17 21:47 Dose: 10 mg Ascorbic Acid (Vitamin C) 250 mg PO DAILY [facility] Ascorbic Acid (Vitamin C) 250 mg PO DAILY [facility] Ascorbic Acid (Vitamin C) 500 mg PO DAILY [facility] Last Admin: 03/31/17 08:53 Dose: 500 mg Atropine Sulfate (Atropine) Confirm Administered Dose 0.4 mg .ROUTE .STK-MED ONE Stop: 03/28/17 09:41 Citalopram Hydrobromide (Celexa) 20 mg PO DAILY [facility] Last Admin: 03/31/17 08:52 Dose: 20 mg Ropivacaine 49.25 ml/Ketorolac Tromethamine 30 mg/Epinephrine HCl 0.5 mg/ Clonidine HCl 80 mcg/ Sodium Chloride 48.45 ml 0 ml INJECT ONETIME ONE Stop: 03/28/17 08:01 Last Admin: 03/28/17 09:07 Dose: 100 ml Dexamethasone (Dexamethasone) Confirm Administered Dose 4 mg .ROUTE .STK-MED ONE Stop: 03/28/17 07:52 Dexamethasone (Dexamethasone) 10 mg IVPUSH Q6H [facility] Last Admin: 03/31/17 08:54 Dose: 10 mg Diazepam (Valium.) 5 mg PO Q6H PRN PRN Reason: Spasms Last Admin: 03/30/17 02:23 Dose: 5 mg Ephedrine Sulfate (Ephedrine Sulfate) Confirm Administered Dose 50 mg .ROUTE .STK-MED ONE Stop: 03/28/17 10:27 Fentanyl (Sublimaze) Confirm Administered Dose 100 mcg .ROUTE .STK-MED ONE Stop: 03/28/17 10:52 Fentanyl Citrate (Fentanyl) Confirm Administered Dose 500 mcg .ROUTE .STK-MED ONE Stop: 03/28/17 07:52 Gabapentin (Neurontin) 300 mg PO ONETIME ONE Stop: 03/28/17 07:01 Last Admin: 03/28/17 06:56 Dose: 300 mg Gabapentin (Neurontin) 300 mg PO TID [facility] Last Admin: 03/31/17 08:53 Dose: 300 mg Glycopyrrolate (Robinul) Confirm Administered Dose 1 mg .ROUTE .STK-MED ONE Stop: 03/28/17 07:52 Hydromorphone HCl (Dilaudid) 1 mg IVPUSH Q2H PRN PRN Reason: Pain Last Admin: 03/28/17 12:42 Dose: 1 mg Cefazolin Sodium 2 gm/ Sodium (Chloride) 50 mls @ 100 mls/hr IV ONETIME ONE Stop: 03/28/17 07:29 Last Admin: 03/28/17 08:06 Dose: 100 mls/hr Lactated Ringer's (Ringers, Lactated) 1,000 mls @ 0 mls/hr IV ASDIRECTED [facility] PRN Reason: KVO Last Admin: 03/28/17 07:46 Dose: 100 mls/hr Tranexamic Acid 770 mg/ Sodium (Chloride) 57.7 mls @ 230.8 mls/hr IV Q3H [facility] Stop: 03/28/17 11:14 Last Admin: 03/28/17 11:35 Dose: 230.8 mls/hr Ketamine HCl 100 mg/ Sodium (Chloride) 100 mls @ 20.5 mls/hr IV ASDIRECTED [facility] Stop: 03/28/17 10:00 Lactated Ringer's (Ringers, Lactated) Confirm Administered Dose 1,000 mls @ as directed .ROUTE .STK-MED ONE Stop: 03/28/17 10:00 Lactated Ringer's (Ringers, Lactated) Confirm Administered Dose 1,000 mls @ as directed .ROUTE .STK-MED ONE Stop: 03/28/17 10:23 Cefazolin Sodium/Dextrose 1 gm (/ Premix) 50 mls @ 100 mls/hr IV Q8H [facility] Last Admin: 03/29/17 09:42 Dose: 100 mls/hr Cefazolin Sodium 2 gm/ Sodium (Chloride) 50 mls @ 100 mls/hr IV Q8H [facility] Stop: 03/31/17 01:29 Last Admin: 03/31/17 02:08 Dose: 100 mls/hr Ketamine HCl (Ketalar) 34 mg IV ONETIME ONE Stop: 03/28/17 08:01 Last Admin: 03/28/17 12:15 Dose: Not Given Magnesium Hydroxide (Milk Of Magnesia) 30 ml PO BID PRN PRN Reason: Constipation Last Admin: 03/31/17 08:55 Dose: 30 ml Midazolam HCl (Versed 1 Mg/Ml) Confirm Administered Dose 2 mg .ROUTE .STK-MED ONE Stop: 03/28/17 07:52 Naloxone HCl (Narcan) 0.2 mg IVPUSH ONETIME PRN PRN Reason: Oversedation Neostigmine Methylsulfate (Neostigmine) Confirm Administered Dose 5 mg .ROUTE .STK-MED ONE Stop: 03/28/17 07:52 Verify Scopolamine (Patch) 0 each TOP DAILY [facility] Last Admin: 03/31/17 08:58 Dose: Not Given Non-Formulary Medication (Ascorbic Acid [Vitamin C]) 100 mg PO DAILY [facility] Non-Formulary Medication (Ascorbic Acid/Cod Liver Oil [Cod Liver Oil]) 1 tab PO DAILY [facility] Non-Formulary Medication (Citalopram Hydrobromide [Celexa]) 20 mg PO DAILY [facility] (Ascorbic Acid/Cod Liver Oil [Cod Liver Oil] 1 Tab)Pom 1 tab PO DAILY [facility] Last Admin: 03/31/17 08:58 Dose: Not Given Ondansetron HCl (Zofran) Confirm Administered Dose 4 mg .ROUTE .STK-MED ONE Stop: 03/28/17 07:52 Ondansetron HCl (Zofran) 8 mg IVPUSH Q4H PRN PRN Reason: Nausea/Vomiting Oxycodone/Acetaminophen (Percocet 325-5 Mg) 2 tab PO Q4H PRN PRN Reason: Pain Last Admin: 03/31/17 08:55 Dose: 2 tab Povidone Iodine (Betadine 10% Soln) Confirm Administered Dose 1 ml .ROUTE .STK- MED ONE Stop: 03/28/17 07:01 Last Admin: 03/28/17 09:21 Dose: 40 ml Propofol (Diprivan 20 Ml) Confirm Administered Dose 200 mg .ROUTE .STK-MED ONE Stop: 03/28/17 07:52 Propofol (Diprivan 20 Ml) Confirm Administered Dose 200 mg .ROUTE .STK-MED ONE Stop: 03/28/17 10:11 Rocuronium [place] (Zemuron) Confirm Administered Dose 50 mg .ROUTE .STK-MED ONE Stop: 03/28/17 07:52 Scopolamine (Transderm-Scop) 1.5 mg TOP Q72H [facility] Stop: 03/31/17 05:00 Last Admin: 03/28/17 06:56 Dose: 1.5 mg Senna (Senna) 8.6 mg PO BID PRN PRN Reason: Constipation Last Admin: 03/29/17 20:18 Dose: 8.6 mg Simvastatin (Zocor) 20 mg PO DAILY [facility] Simvastatin (Zocor) 20 mg PO DAILY [facility] Simvastatin (Zocor) 20 mg PO DAILY [facility] Last Admin: 03/31/17 08:53 Dose: 20 mg Sodium Chloride (Saline Flush) 10 ml FLUSH ASDIRECTED PRN PRN Reason: Keep Vein Open Succinylcholine Chloride (Quelicin) Confirm Administered Dose 200 mg .ROUTE .STK -MED ONE Stop: 03/28/17 07:52 [facility] Last Admin: 03/31/17 07:49 Dose: 0.4 mg Thrombin (Thrombin-Jmi) Confirm Administered Dose 15,000 unit .ROUTE .STK-MED ONE Stop: 03/28/17 07:01 Last Admin: 03/28/17 09:21 Dose: 10,000 unit Zolpidem Tartrate (Ambien) 5 mg PO BEDTIME PRN PRN Reason: Sleep - Exam General: Alert Back Exam: Normal Inspection Extremities: Normal Inspection, Normal Range of Motion, Non-Tender, No Pedal Edema, Normal Capillary Refill Skin: Warm, Dry, Intact Wound/Incisions: Healing Well, Dressing Dry and Intact, No Drainage Neurological: Normal Gait, Strength Equal Bilateral, Reflexes Equal Bilateral, Other (right lower extremity weakness) Psy/Mental Status: Alert - Problem List Review Problem List Initiated/Reviewed/Updated: Yes - Plan Plan:: 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 He is doing well. He is having some difficulties and pain in his right leg. He has some urinary hesitancy throughout the day that we have been monitoring. We will continue to monitoring him till am. I want to watch his urine output closely.
== END 2017-03-31 14:10 | disposition home or self-care (01) | DRG 460 ==
LOC: JP.SDS 06:35 → JP.MS 06:35 → EDSTATUS 09:10 → JP.MS 11:12
PROVIDERS: ADMIT Orthopaedic Surgery; ATTEND Orthopaedic Surgery
PROC: 0SG00A1 (ICD-10-PCS; principal; 2017-03-28)
PROC: 01NB0ZZ Release Lumbar Nerve, Open Approach (ICD-10-PCS; 2017-03-28)
DX: M48.06 Spinal stenosis, lumbar region (principal); M21.371 Foot drop, right foot; M12.88 Other specific arthropathies, not elsewhere classified, other specified site; M54.10 Radiculopathy, site unspecified; Z79.899 Other long term (current) drug therapy
CPT/HCPCS: 36415; 51798; 76001; 80048; 80053; 81001; 81003; 85025; 85027; 86850; 86900; 86901; 93005; 93970; 93970-26; 94762; 97110-GP; 97112-GP; 97116-GP; 97140-GP; 97162-GP; 97165-GO; 97530-GP; 97535-GP; 97762-GP; A9270-GY; C1713; J0171; J0330; J0461; J0690; J0735; J1100; J1170; J1885; J2250; J2405; J2704; J2710; J2795; J3010; J7030; J7050; J7120

== ENCOUNTER 2017-04-05 17:24 | Emergency (ER) | payer MEDICARE, BC ==
[2017-04-05 17:36] VITALS: BP 117/69
--- NOTE | 2017-04-05 18:49 | EDM.PDOC ---
ED HPI GENERAL MEDICAL PROBLEM - General Chief Complaint: Neuro Symptoms/Deficits Stated Complaint: PAIN FROM BACK SURGERY Time Seen by Provider: 04/05/17 17:58 Source of Information: Reports: Patient History Limitations: Reports: No Limitations - History of Present Illness INITIAL COMMENTS - FREE TEXT/NARRATIVE: hx of back surgery [address] Salgado with a fusion/laminectomy. is concerned that he is sleeping most of day. Overall his back pain is better, but having more pain into right leg than before surgery. Weakness in leg is better, able to walk with minimal pain. Denies fever or chills. Eating well. No nausea. Taking new meds of percocet and valium for pain. At times telling that it is severe pain. Onset: Gradual Duration: Week(s): (1) Location: Reports: Back Quality: Reports: Ache Severity: Moderate Improves with: Reports: Medication Worsens with: Reports: Movement Context: Reports: Activity Associated Symptoms: Reports: Confusion (per seems more confused, maybe due to drugs) Right Leg Pain Score (Numeric/FACES): 2 - Related Data Allergies Allergy/AdvReac Type Severity Reaction Status Date / Time bee venom protein (honey bee) Allergy Anaphylactic Verified 04/05/17 17:41 Shock Home Meds: Home Meds Amitriptyline [Elavil] 10 mg PO BEDTIME 03/20/17 [History] Ascorbic Acid [Vitamin C] 100 mg PO DAILY 03/20/17 [History] Ascorbic Acid/Cod Liver Oil [Cod Liver Oil] 1 tab PO DAILY 03/20/17 [History] Citalopram Hydrobromide [Celexa] 20 mg PO DAILY 03/20/17 [History] EPINEPHrine [Auvi-Q] 1 pen SQ ASDIRECTED 03/20/17 [History] Gabapentin [Neurontin] 300 mg PO TID 03/20/17 [History] Simvastatin [Zocor] 20 mg PO DAILY 03/20/17 [History] traMADol HCl [Tramadol HCl] 50 mg PO ASDIRECTED PRN 03/28/17 [History] Acetaminophen/oxyCODONE [Percocet 325-5 MG] 1 tab PO Q6HR #90 tablet 03/31/17 [ Rx] Diazepam [Valium] 5 mg PO Q6H PRN #20 tablet 03/31/17 [Rx] Sennosides [Senna] 8.6 mg PO DAILY #60 tablet 03/31/17 [Rx] Tamsulosin [Flomax] 0.4 mg PO DAILY #60 cap.er 03/31/17 [Rx] Past Medical History HEENT History: Reports: Impaired Vision Other HEENT History: wears glasses Cardiovascular History: Reports: Heart Murmur, Other (See Below) Other Cardiovascular History: ischemic heart disease Musculoskeletal History: Reports: Back Pain, Chronic Neurological History: Reports: Migraines - Infectious Disease History Infectious Disease History: Reports: Chicken Pox, Measles, Mumps, Rheumatic Fever, Rubella - Past Surgical History HEENT Surgical History: Reports: Oral Surgery Other HEENT Surgeries/Procedures: wisdom teeth Cardiovascular Surgical History: Reports: None GI Surgical History: Reports: Colonoscopy, Hernia, Inguinal Neurological Surgical History: Reports: Laminectomy, Spinal Fusion Social & Family History - Family History Cardiac: Reports: [place] Oncologic: Reports: Cervix, Lung - Tobacco Use Smoking Status *Q: Never Smoker - Caffeine Use Caffeine Use: Reports: Soda - Recreational Drug Use Recreational Drug Use: No ED ROS GENERAL - Review of Systems Review Of Systems: See Below Constitutional: Reports: Chills, Weakness HEENT: Reports: No Symptoms Respiratory: Reports: No Symptoms Cardiovascular: Reports: No Symptoms Endocrine: Reports: No Symptoms GI/Abdominal: Reports: No Symptoms : Reports: No Symptoms Musculoskeletal: Reports: Back Pain, Leg Pain (right, radiating from back) Skin: Reports: No Symptoms Neurological: Reports: Numbness (slight in right leg). Denies: Trouble Speaking , Difficulty Walking Psychiatric: Reports: Confusion (taking longer to answer questions) Hematologic/Lymphatic: Reports: No Symptoms Immunologic: Reports: No Symptoms ED EXAM, GENERAL - Physical Exam Exam: See Below Exam Limited By: No Limitations General Appearance: Alert, WD/WN, No Apparent Distress Nose: Normal Inspection Throat/Mouth: Normal Inspection Head: Atraumatic Neck: Normal Inspection Respiratory/Chest: No Respiratory Distress, Lungs Clear, Normal Breath Sounds Cardiovascular: Normal Peripheral Pulses, Regular Rate, Rhythm, No Edema GI/Abdominal: Normal Bowel Sounds, Soft, Non-Tender Back Exam: Other (wearing back brace. Back incisions are clean and dry, no redness, no tenderness in area). No: CVA Tenderness (L) Neurological: Alert, Oriented, CN II-XII Intact, Slow to Respond (mild, will answer questions correctly) Psychiatric: Flat Affect Skin Exam: Warm, Dry Course - Vital Signs Last Recorded V/S: Last Vital Signs Temp 37.0 C 04/05/17 17:41 Pulse 68 04/05/17 17:41 Resp 14 04/05/17 17:41 BP 117/69 04/05/17 17:41 Pulse Ox 94 L 04/05/17 17:41 - Orders/Labs/Meds Orders: Active Orders 24 hr Category Date Time Status Lumbar Spine wo Cont [CT] Stat Exams 04/05/17 17:27 Taken Labs: Laboratory Tests 04/05/17 04/05/17 Range/Units 18:53 18:53 WBC 11.4 H (4.5-11.0) K/uL RBC 4.33 (4.30-5.90) M/uL Hgb 12.8 (12.0-15.0) g/dL Hct 38.9 L (40.0-54.0) % MCV 90 (80-98) fL MCH 30 (27-31) pg MCHC 33 (32-36) % Plt Count 223 (150-400) K/uL Add Manual Diff Yes Neutrophils % (Manual) 59 (36-66) % Band Neutrophils % 11 (5-11) % Lymphocytes % (Manual) 19 L (24-44) % Monocytes % (Manual) 9 H (2-6) % Eosinophils % (Manual) 2 (2-4) % Sodium 135 L (140-148) mmol/L Potassium 4.4 (3.6-5.2) mmol/L Chloride 98 L (100-108) mmol/L Carbon Dioxide 32 (21-32) mmol/L Anion Gap 9.4 (5.0-14.0) mmol/L BUN 18 (7-18) mg/dL Creatinine 1.2 (0.8-1.3) mg/dL Est Cr Clr Drug Dosing 58.01 mL/min Estimated GFR (MDRD) > 60 (>60) Glucose 102 (74-106) mg/dL Calcium 8.6 (8.5-10.1) mg/dL - Re-Assessments/Exams Free Text/Narrative Re-Assessment/Exam: 04/05/17 19:[address] scan of back reviewed by Dr. Churchill with no abnormalities or issues seen. Overall doing well in post op period. Some of the slight confusion and sleepiness likely due to pain meds, oxycodone and valium. discussed this with him and recommended cutting the pills in half and see if this helps Departure - Departure Time of Disposition: 19:35 Disposition: Home, Self-Care 01 Clinical Impression: Post-op pain - Discharge Information Referrals: PCP,None [Primary Care Provider] - Forms: ED Department Discharge Additional Instructions: Discussed cutting his pain meds in half. He also has tramadol at home and can try this to see if causes less sedation
== END 2017-04-05 19:51 | disposition home or self-care (01) ==
LOC: JP.ED 17:24
DX: G89.18 Other acute postprocedural pain (principal); M54.5 Low back pain; Z91.030 Bee allergy status; Z79.899 Other long term (current) drug therapy
CPT/HCPCS: 36415; 72131; 80048; 85025; 99283; 99284-25

== ENCOUNTER 2019-11-18 19:54 | Emergency (ER) | payer MEDICARE, BC ==
[2019-11-18 20:17] VITALS: BP 140/74; PULSE 70
--- NOTE | 2019-11-18 20:32 | EDM.PDOC ---
ED HPI GENERAL MEDICAL PROBLEM - General Chief Complaint: Bite:Animal, Insect Stated Complaint: TICK IN ARMPIT Time Seen by Provider: 11/18/19 20:23 Source of Information: Reports: Patient, RN Notes Reviewed History Limitations: Reports: No Limitations - History of Present Illness INITIAL COMMENTS - FREE TEXT/NARRATIVE: 68-year-old gentleman presents emergency department today with tick bite under his left arm he found the tick yesterday states it was a smaller one he is unsure of what type no symptoms - Related Data Allergies Allergy/AdvReac Type Severity Reaction Status Date / Time bee venom protein (honey bee) Allergy Anaphylactic Verified 11/18/19 20:10 Shock Home Meds: Home Meds Amitriptyline [Elavil] 20 mg PO BEDTIME 03/20/17 [History] Ascorbic Acid [Vitamin C] 100 mg PO DAILY 03/20/17 [History] Ascorbic Acid/Cod Liver Oil [Cod Liver Oil] 1 tab PO DAILY 03/20/17 [History] EPINEPHrine [Auvi-Q] 1 pen SQ ASDIRECTED 03/20/17 [History] Simvastatin [Zocor] 20 mg PO DAILY 03/20/17 [History] Sennosides [Senna] 8.6 mg PO DAILY #60 tablet 03/31/17 [Rx] Gabapentin [Neurontin] 300 mg PO TID 01/17/18 [History] Escitalopram [Lexapro] 20 mg PO DAILY 11/18/19 [History] Ubidecarenone [Co Q-10] 0 tab PO DAILY 11/18/19 [History] Past Medical History HEENT History: Reports: Impaired Vision Other HEENT History: wears glasses Cardiovascular History: Reports: Heart Murmur, High Cholesterol, Other (See Below) Other Cardiovascular History: ischemic heart disease Musculoskeletal History: Reports: Back Pain, Chronic, Other (See Below) Other Musculoskeletal History: s/p TLIF L5-4 L4-L5 Neurological History: Reports: Migraines Psychiatric History: Reports: Depression - Infectious Disease History Infectious Disease History: Reports: Chicken Pox, Measles, Mumps, Shingles - Past Surgical History HEENT Surgical History: Reports: Oral Surgery Other HEENT Surgeries/Procedures: wisdom teeth Cardiovascular Surgical History: Reports: None GI Surgical History: Reports: Colonoscopy, Hernia, Inguinal Social & Family History - Family History Family Medical History: Noncontributory Cardiac: Reports: DC Oncologic: Reports: Cervix, Lung - Tobacco Use Smoking Status *Q: Never Smoker - Caffeine Use Caffeine Use: Reports: None - Recreational Drug Use Recreational Drug Use: No ED ROS GENERAL - Review of Systems Review Of Systems: See Below Constitutional: Reports: No Symptoms Skin: Reports: Wound ED EXAM, ANIMAL BITE - Physical Exam Exam: See Below Text/Narrative:: Examination of the left axilla he does have a wound about the size approximately 1 cm at the center of this wound there is remanence of a tick is removed with a #11 blade and a splinter forceps Exam Limited By: No Limitations General Appearance: Alert, WD/WN, No Apparent Distress Course - Vital Signs Last Recorded V/S: Last Vital Signs Temp 96.2 F L 11/18/19 20:16 Pulse 70 11/18/19 20:16 Resp 18 11/18/19 20:16 BP 140/74 11/18/19 20:16 Pulse Ox 96 11/18/19 20:16 Departure - Departure Time of Disposition: 20:32 Disposition: Home, Self-Care 01 Condition: Fair Clinical Impression: Tick bite Qualifiers: Encounter type: initial encounter Qualified Code(s): W57.XXXA - Bitten or stung by nonvenomous insect and other nonvenomous arthropods, initial encounter - Discharge Information Instructions: Tick Bite Information, Adult, [id number] Referrals: Saleem Ariza MD [Primary Care Provider] - Additional Instructions: Take full course of antibiotics, please followup with your primary care provider in 5-7 days if not better, please call return to the emergency department with worsening of symptoms. 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
== END 2019-11-18 20:40 | disposition home or self-care (01) ==
LOC: JP.ED 19:54
DX: S40.862A Insect bite (nonvenomous) of left upper arm, initial encounter (principal); Z91.030 Bee allergy status; E78.00 Pure hypercholesterolemia, unspecified; F32.9 Major depressive disorder, single episode, unspecified; Z79.899 Other long term (current) drug therapy; W57.XXXA Bitten or stung by nonvenomous insect and other nonvenomous arthropods, initial encounter
CPT/HCPCS: 10120; 99282

== ENCOUNTER 2021-03-31 07:12 | Day surgery (SDC) | payer MEDICARE, BC ==
[2021-03-31] MEDS ORDERED: Propofol 200 MG/20 ML SDV ONE (07:20)
[2021-03-31] MEDS ORDERED: fentaNYL 100 MCG/2 ML SDV ONE (07:20)
[2021-03-31] MEDS ORDERED: Midazolam 1 MG/ML 2 ML SDV ONE (07:20)
[2021-03-31] MEDS ORDERED: Sodium Chloride 0.9% 1,000 ML IV SCH (08:00)
[2021-03-31 11:02] VITALS: BP 121/77; PULSE 62
--- NOTE | 2021-03-31 14:19 | OR ---
DATE OF PROCEDURE: 03/31/2021 SURGEON: Silver Wood MD PROCEDURE PERFORMED: Colonoscopy. FINDINGS: 1. Transverse colon polyp, approximately 5 mm, completely removed using cold biopsy forceps. 2. Transverse colon polyp #2, completely removed using endoscopic mucosal resection techniques including elevation with gel. RISKS: Risks, benefits, alternatives, and limitations including, but not limited to infection, bleeding, perforation, false positives, and false negatives were explained to the patient who wished to proceed. PREOPERATIVE DIAGNOSIS: Screening colonoscopy. POSTOPERATIVE DIAGNOSIS: Screening colonoscopy. PROCEDURE IN DETAIL: The patient was placed in the left lateral decubitus position. Digital rectal exam was performed without abnormality. The scope was introduced and advanced atraumatically to the ileocecal valve. A photo was taken of the appendiceal orifice. The scope was brought back through the ascending, transverse, and descending colon and retroflexed. No evidence of old or new blood. No masses. No colitis. The aforementioned polyps were identified and completely removed using the aforementioned technique. No abnormalities on retroflex. The prep was acceptable. Approximately 90% of the luminal surface could be seen. Greater than 8 minutes was spent on removing the scope. The patient tolerated the procedure well. Silver Wood MD /[id number]
== END 2021-03-31 10:55 | disposition home or self-care (01) ==
LOC: JP.SDS 07:12
PROVIDERS: ATTEND Surgery
DX: Z12.11 Encounter for screening for malignant neoplasm of colon (principal); D12.3 Benign neoplasm of transverse colon; Z91.030 Bee allergy status
CPT/HCPCS: 45380; 45390; 88305; J2250; J2704; J3010; J7030

== ENCOUNTER 2024-08-06 06:54 | Day surgery (SDC) | payer MEDICARE, BC ==
[2024-08-06] MEDS ORDERED: fentaNYL 100 MCG/2 ML SDV ONE (07:39)
[2024-08-06] MEDS ORDERED: Propofol 200 MG/20 ML SDV ONE (07:39)
[2024-08-06] MEDS: Lactated Ringers 1,000 ML IV SCH (07:51)
[2024-08-06 10:04] VITALS: BP 152/77; PULSE 58
== END 2024-08-06 10:10 | disposition home or self-care (01) ==
LOC: JP.SDS 06:54
PROVIDERS: ATTEND Surgery
DX: Z12.11 Encounter for screening for malignant neoplasm of colon (principal); D12.2 Benign neoplasm of ascending colon; D12.5 Benign neoplasm of sigmoid colon; Z91.030 Bee allergy status; Z86.0100 Personal history of colon polyps, unspecified
CPT/HCPCS: 00811; 45380; 88305; J2704; J3010; J7120